=== PATIENT | male | born 1985 | race Caucasian/White ===

== ENCOUNTER 2021-10-18 17:03 | Emergency (ER) | payer BC ==
[2021-10-19 18:58] LABS: SARS-CoV-2 PCR by NAA Not Detected (NotDetected)
== END 2021-10-18 18:05 | disposition home or self-care (01) ==
LOC: MADERS 17:03
DX: J06.9 Acute upper respiratory infection, unspecified (principal); E78.00 Pure hypercholesterolemia, unspecified; M10.9 Gout, unspecified; F17.220 Nicotine dependence, chewing tobacco, uncomplicated; Z20.822 Contact with and (suspected) exposure to COVID-19; Z79.899 Other long term (current) drug therapy
CPT/HCPCS: 87804; 99283; U0003; U0005

== ENCOUNTER 2024-07-21 18:23 | Emergency (ER) | payer BC ==
[2024-07-21] MEDS ORDERED: Morphine 4 MG/ML VIAL ONE (18:54)
[2024-07-21] MEDS ORDERED: Lidocaine 1% (PF) 30 ML VIAL ONE (18:54)
[2024-07-21] MEDS ORDERED: Bupivacaine PF 0.5% 30 ML VIAL ONE (18:54)
== END 2024-07-21 20:37 | disposition home or self-care (01) ==
LOC: MADERS 18:23
DX: S92.212A Displaced fracture of cuboid bone of left foot, initial encounter for closed fracture (principal); F17.220 Nicotine dependence, chewing tobacco, uncomplicated; W17.89XA Other fall from one level to another, initial encounter
CPT/HCPCS: 96374; J0665; J2272